=== PATIENT | male | born 1980 | race Caucasian/White ===

== ENCOUNTER 2019-10-25 13:48 | Outpatient (CLI) | payer OTHER, SELFPAY ==
--- NOTE | ~2019-10-25 | MR_ITS ---
EXAMINATION: MR pituitary wo/w con DATE: 10/25/2019 15:17 INDICATION: Low testosterone. Hypogonadism. TECHNIQUE: Magnetic resonance imaging (MRI) of the brain and brainstem was performed without and with 20 mL MultiHance intravenous contrast. Whole-brain sequences included sagittal T1-weighted FSE, axia l diffusion-weighted FS EPI, axial T2*-weighted GRE, axial T2-weighted FLAIR Propeller, and axial T2- weighted Propeller. Small davyj-rn-komj sequences included sagittal and coronal T1-weighted FSE cente red at the pituitary. Postcontrast sequences included small npunt-jo-ibgm coronal T1-weighted FSE in a time course and sagittal T1-weighted FSE and whole-brain axial T1-weighted FSE. Apparent diffusion coefficient (ADC) maps were created. COMPARISON: None. FINDINGS: The pituitary is normal in size with height of 5 mm. The infundibulum is slightly deviated to the right. There is no intracranial hemorrhage, acute infarction, or abnormal intracranial mass le eusebio. The ventricles are normal in size. There are mucous retention cysts in left maxillary sinus. Th ere is a trace left mastoid effusion. IMPRESSION: 1. Normal pituitary. Normal brain. Reviewed, dictated and finalized at location B.
[2019-10-25 14:23] LABS: Estimated Glomerular Filt Rate 56
== END 2019-10-25 13:49 | disposition home or self-care (01) ==
PROVIDERS: PCP Nurse Practitioner; Visit Provider Internal Medicine Endocrinology, Diabetes & Metabolism
DX: E23.0 Hypopituitarism (principal)
CPT/HCPCS: 70553; A9577